=== PATIENT | female | born 1990 | race Hispanic/Latino ===

== ENCOUNTER 2018-04-04 19:03 | Inpatient (IN) ==
[2018-04-04 20:04] LABS: URINE SOURCE VOIDED
[2018-04-04 20:15] LABS: BILIRUBIN URINE NEGATIVE (NEGATIVE); BLOOD URINE TRACE (NEGATIVE); CLARITY CLEAR (CLEAR); COLOR YELLOW; KETONE URINE NEGATIVE (NEGATIVE); LEUKOCYTES URINE NEGATIVE (NEGATIVE); NITRITE URINE NEGATIVE (NEGATIVE); SP GRAVITY URINE 1.015; UROBILINOGEN URINE NORMAL
[2018-04-04] MEDS ORDERED: LR 1,000 ML IV SCH (20:30)
[2018-04-04] MEDS ORDERED: BICITRA PO ONE (20:58)
[2018-04-04] MEDS ORDERED: REGLAN PO ONE (20:58)
[2018-04-04] MEDS ORDERED: SODIUM CHLORIDE 0.9% INJ ONE (20:58)
[2018-04-04] MEDS ORDERED: PEPCID IV ONE (20:58)
--- NOTE | 2018-04-04 21:16 | OB/GYN PROGRESS NOTE ---
Progress Note OB - . OB Progress Note: Laboratory Results - last 24 hr 04/04/18 19:20 Urine Source VOIDED Urine Color YELLOW Urine Clarity CLEAR Urine pH 8.0 Ur Specific [place] 1.015 Urine Protein 3+(500 mg/dL) A Urine Ketones NEGATIVE Urine Blood TRACE Urine Nitrite NEGATIVE Urine Bilirubin NEGATIVE Urine Urobilinogen NORMAL Urine WBC NEGATIVE Urine Glucose TRACE(50 mg/dL) A 27 year old at 38 + 0 weeks with EDC 04/19/17. Hx pre-eclampsia x 2 with delivery at 34-35 weeks by with first and and delivery at 36 weeks by with second. Presented with complaints of contractions. BP elevated 177/108 and 197/112 on arrival with recumbent position has been 185/95, 160/93, 161,97 and 160/87. Epigastric pain present starting today. Swelling LE the past week. NO AVALOS or vision changes, no N/V, no CP or SOB. On exam trace LE edema 2+ reflexes bilaterally. Negative alcantara's sign. FT on cervical exam per nurses. 3+ protein on dip. LABWORK all still pending awaiting labs. C- Section repeat called -- team notified. Will mag post delivery and treat BP based if continued 160's over 90's. Risks and benefits of discussed with patient. H&P dictated #[id number]
[2018-04-04] MEDS ORDERED: SODIUM CHLORIDE 0.9% 10 ML ONE (21:18)
[2018-04-04] MEDS ORDERED: TORADOL ONE (21:18)
[2018-04-04] MEDS ORDERED: NEO-SYNEPHRINE ONE (21:18)
[2018-04-04] MEDS ORDERED: ROBINUL ONE ×2 (21:18→22:59)
[2018-04-04] MEDS ORDERED: DURAMORPH ONE (21:18)
[2018-04-04] MEDS ORDERED: DECADRON ONE (21:18)
[2018-04-04] MEDS ORDERED: PITOCIN ONE (21:18)
[2018-04-04] MEDS ORDERED: ZOFRAN ONE (21:18)
[2018-04-04] MEDS ORDERED: FENTANYL ONE (21:18)
[2018-04-04 21:23] LABS: BASO# 0.01 X1000 (0.0-0.2); BASO% 0.1 % (0.0-0.8); EOS# 0.07 X1000 (0.0-0.7); EOS% 0.9 % (0.0-10.0); HEMATOCRIT 36.9 % (37.0-47.0); HEMOGLOBIN 12.1 g/dL (12.0-16.0); IMM GRAN# 0.03 X1000 (0.0-0.04); IMM GRAN% 0.4 % (0.0-0.5); LYMPH# 2.19 X1000 (1.2-3.4); LYMPH% 28.8 % (20.5-51.1); MCH 27.4 PG (27-31); MCHC 32.8 g/dL (33-37); MCV 83.7 FL (81-99); MONO# 0.42 X1000 (0.11-0.59); MONO% 5.5 % (1.7-9.3); MPV 12.8 FL (7.4-10.4); NEUT# 4.88 X1000 (1.4-6.5); NEUT% 64.3 % (42.2-75.2); PLT 205 X1000 (130-400); RBC 4.41 XMIL (4.2-5.4); RDW 15.2 % (11.5-14.5)
[2018-04-04] MEDS ORDERED: LABETALOL IV ONE (21:29)
[2018-04-04 21:35] LABS: AGAP 13; ALKALINE PHOSPHATASE 270 U/L (32-104); BUN 10 mg/dL (8-22); CALCIUM 8.9 mg/dL (8.8-10.2); CHLORIDE 100 mmol/L (98-107); COSMO 272; CREATININE 0.3 mg/dL (0.5-0.9); ESTIMATED GFR > 60; GLUCOSE 87 mg/dL (70-104); GOT 73 U/L (10-30); GPT 46 U/L (10-36); POTASSIUM 3.8 mmol/L (3.5-5.1); SODIUM 137 mmol/L (136-145); TCO2 24 mmol/L (25-35); TOTAL PROTEIN 7.2 g/dL (6.3-8.3); URIC ACID 3.5 mg/dL (2.4-5.7)
[2018-04-04 21:36] LABS: HEMOGLOBIN A1C 6.8 % (4.8-6.0)
[2018-04-04] MEDS ORDERED: LABETALOL ONE (21:36)
[2018-04-04] MEDS: KEFZOL 1 GM/D5W 1 GM/50 ML IVPB ONE ×2 (21:36→21:37)
[2018-04-04 22:29] LABS: PROTIME 11.2 Seconds (11.0-16.0)
[2018-04-04 22:30] LABS: PTT 26.8 Seconds (22.3-41.8)
[2018-04-04 22:34] LABS: INR 0.77
[2018-04-04] MEDS ORDERED: MAGNESIUM SULFATE 4 GM/S.W.I. 4 GM/100 ML IVPB ONE (22:58)
[2018-04-04] MEDS ORDERED: MAGNESIUM SULFATE 4 GM/S.W.I. 4 GM/100 ML IVPB IV ONE (23:00)
[2018-04-04] MEDS ORDERED: MAGNESIUM SULFATE 2 GM/S.W.I. 2 GM/50 ML IVPB IV ONE (23:00)
--- NOTE | 2018-04-04 23:16 | HISTORY AND PHYSICAL ---
CHIEF COMPLAINT: Contractions that are painful, history of preeclampsia. HISTORY OF PRESENT ILLNESS: The patient is a 27-year-old G4, P2, with EDC of . This places her at 38 weeks and 0 days gestation. She is followed by Dr. Giang of [facility]. She arrived to Labor and Delivery with complaints of contractions that started approximately at 6 p.m. on 04/04/2018. She has a history of x2 that were both due to preeclampsia. On TOCO, she is brendan maybe every 3 to 5. heart tones in the 130s 140s, reactive and reassuring. Accelerations present and a category 1 tracing noted. However, her blood pressures on arrival were 177/108 and 197/112. With recumbent position and left lateral, her blood pressures have maintained in the 160s/87 to approximately 97. The patient states over the past week she has noted some increase in swelling of her lower extremities and today started having some epigastric discomfort and burning. She states it feels "just like both other times." She denies headache or vision problems. She denies nausea or vomiting. She has had good movement. No leakage of fluid. No vaginal bleeding. She denies any chest pain or shortness of breath. Again, history of x2. She has not signed tubal ligation permit papers and was not planning on permanent sterilization. Patient is diabetic and is on Metformin 1000mg po BID and Regular insulin 17 units 9 am and 16 units 9 pm, as well as NPH 26 units at 9am and 24 units at 9pm. States BS in low 100's fasting and 140-170's post prandial. records were reviewed. U/S 03/23/18 placenta posterior and grade 3. 48% for growth. GBS negative. Planning Nexplanon for Post control. PAST MEDICAL HISTORY: 1. Type 2 diabetes since 16 years of age. 2. Pre-eclampsia x 2. She denies any hypertension history other than when . 3. History of Chlamydia in the past. MEDICATIONS: 1. vitamin. 2. The patient is on metformin as well as NPH and regular insulin b.i.d. SURGICAL HISTORY: section x2, cholecystectomy. ALLERGIES: No known drug allergies. FAMILY HISTORY: Diabetes in both her mom and dad. SOCIAL HISTORY: She denies alcohol use, denies illicit drug use, and denies tobacco use. OBSTETRIC HISTORY: Severe preeclampsia with 1st with delivery at 34 weeks per patient and review of prenatals at 35 weeks. It is reported that her 2nd was a repeat in her records. Per patient, she was delivered at 36 weeks with her 2nd child due to preeclampsia symptoms. PHYSICAL EXAMINATION: Blood pressure at present 185/95, pulse of 89, saturation of 99% on room air, temperature 97 degrees. GENERAL: Alert and oriented x3. No acute distress. Having discomfort with contractions. Able to relax somewhat in between. HEENT: Pupils equal, round, reactive to light. There is no thyromegaly present. CARDIOVASCULAR: Regular rate and rhythm. LUNGS: Clear to auscultation bilaterally. ABDOMEN: Bowel sounds present. Soft, nondistended, nontender. No rebound or guarding. Gravid uterus that is nontender. There is no Coleman sign on exam. Points to epigastric area for her discomfort. PELVIC EXAM: Deferred. She was fingertip on arrival per nursing staff. EXTREMITIES: She has trace pitting edema, lower extremities bilaterally. Reflexes are 2+, lower extremities bilaterally. No hyperreflexia noted. No clonus. LABORATORY WORK: At present, all that has returned is UA with 3+ protein on dip and trace urine glucose being present. CMP, CBC, uric acid, and coagulation panel are all ordered and pending at present time. ASSESSMENT: A 27-year-old 4, para 2, at 38 weeks 0 days gestation. History of preeclampsia x2 and currently severe preeclampsia with symptoms, blood pressure and proteinuria. Lab work still pending. PLAN: 1. Team called. Anesthesia called. Nursery made aware. Blood glucose will be on CMP as well prior to delivery. 2. I did discuss with patient regarding section and delivery. She is [place]-speaking. I did discuss it is prior to 39 weeks so a very small risk of lung immaturity does exist. Also with her diabetes, this can have an impact. Risks and benefits of surgery were discussed with the patient at length. Risks of bleeding and infection associated with surgical procedures as well as risk of damage to other vital adjacent organs including bowel, bladder, major blood vessels, and the uterus itself was discussed. I discussed as well that due to her history of previous x2 and previous cholecystectomy, can increase her risk for adhesions which can increase the risk for damage to other vital adjacent organs. She stated understanding for this. I discussed that if bleeding is extensive at the time of surgery that a blood transfusion possibly could be needed. The risk of receiving blood products was discussed including exposure to blood-borne pathogens and severe transfusion reactions. She stated understanding and that she would accept blood products if needed to save her life. Possible postoperative complications including severe wound infection and separation was discussed. Also being obese as well as diabetes can effect wound healing. Good incisional wound care was discussed with the patient. I also discussed the risks of DVT or clot formation and that SCD boots would be used postop, but early ambulation is encouraged. She states understanding. All questions regarding section were discussed. Informed consent was obtained and signed. cc: Phyllis Reno MD MTDD
[2018-04-04] MEDS ORDERED: PITOCIN 10 UNITS/LR 10 UNIT/1,000 ML IV.SOLN IV SCH (23:45)
[2018-04-04] MEDS ORDERED: MAGNESIUM SULFATE 40 GM/S.W.I. 40 GM/1,000 ML IV.SOLN IV SCH (23:45)
[2018-04-04] MEDS ORDERED: MYLICON PO PRN (23:56)
[2018-04-04] MEDS ORDERED: PITOCIN 20 UNITS/NS 20 UNITS/1,000 ML IV.SOLN IV ONE (23:56)
[2018-04-04] MEDS ORDERED: ATARAX PO PRN (23:56)
[2018-04-04] MEDS ORDERED: BOOSTRIX VACCINE IM ONE (23:56)
[2018-04-04] MEDS ORDERED: DULCOLAX PR PRN (23:56)
[2018-04-04] MEDS ORDERED: DEMEROL IM PRN (23:56)
[2018-04-04] MEDS ORDERED: HYDROXYZINE IM PRN (23:56)
[2018-04-04] MEDS ORDERED: NORCO-5 PO PRN (23:56)
[2018-04-04] MEDS ORDERED: M-M-R II VACCINE SUBQ ONE (23:56)
[2018-04-04] MEDS ORDERED: PHENERGAN IM PRN (23:56)
[2018-04-04] MEDS ORDERED: DEMEROL PO PRN ×2 (23:56)
[2018-04-04] MEDS ORDERED: PITOCIN IM PRN (23:56)
[2018-04-05] MEDS ORDERED: PITOCIN 20 UNITS/NS 20 UNITS/1,000 ML IV.SOLN ONE (00:09)
[2018-04-05] MEDS ORDERED: HUMULIN N SUBQ ONE (01:04)
--- NOTE | 2018-04-05 03:11 | OPERATIVE NOTE ---
PROCEDURE DATE: 04/04/2018 PREOPERATIVE DIAGNOSIS: A 38-week, 0 day gestation, severe preeclampsia with HELLP variant, history of x2, history of preeclampsia x2. POSTOPERATIVE DIAGNOSIS: A 38-week, 0 day gestation, severe preeclampsia with HELLP variant, history of x2, history of preeclampsia x2. PROCEDURE: Repeat low transverse section. SURGEON: Dr. Reno. JTAC: None. ANESTHESIA: Spinal, under the direction of Dr. Sotomayor. ESTIMATED BLOOD LOSS: 500 mL. SPECIMENS: Placenta to Pathology for diabetes type 2 and preeclampsia. COMPLICATIONS: None. CONDITION: Stable to PACU. INDICATIONS: The patient is a 27-year-old G4, P2, [place]-speaking female, at 38 weeks and 0 day gestation. She has been receiving her care with [facility]. She presented to Labor and Delivery in the evening of 04/04/2018, stating that she began brendan and having some right-sided pains, approximately 6 p.m. On arrival, she was brendan every 3 to 5 minutes. heart tones were in the 130s to 140s, reactive, reassuring category 1 tracing. However, her blood pressures on arrival were 177/108, and 197/112. With recumbent position, blood pressures remained 185/95, 160/93, 161/97, and 160/87. She did have trace lower extremity edema on exam, and reflexes were 2+ bilaterally. There was no clonus. The patient reports that she has been having swelling for approximately the last week. She also reports that she began having epigastric pain this evening at about the same time her contractions began, and a burning sensation, as well as some right-sided upper abdominal discomfort. Her Coleman' s sign, however, was negative. She had 3+ protein on dip. Lab work that was obtained revealed platelet count of 205,000, hemoglobin of 12.1, hematocrit of 36.9, creatinine 0.3, BUN of 10, glucose of 87, uric acid of 3.5. Her liver functions were slightly elevated, with an AST of 73, and an ALT of 46. She has history of preeclampsia x2 previous pregnancies. At this point patient with severe preeclampsia with severe features, diastolics in the 90s to 110's and systolics anywhere from the 160s to 190s, and proteinuria, discussed with patient proceeding with repeat section due to severe preeclampsia/HELLP variant. Risks and benefits of section were discussed with the patient at length, including risk of anesthesia itself, as well as risks of bleeding, infection associated with surgical procedures. I also discussed the risk of possibly damage to other vital adjacent organs, including bowel, bladder, major blood vessels, and the uterus itself. I discussed with previous surgical procedures there is an increased risk of adhesions being present, and if adhesions are present, she is at an increased risk of damage to adjacent vital organs. I discussed the possibility of need for blood transfusion if bleeding is extensive , and the risks associated with this, including exposure to bloodborne pathogens and severe transfusion reactions. The patient states understanding, and that she would accept a blood transfusion if needed. I discussed possible postoperative complications, including severe wound infection and separation, DVT, or clot formation. I discussed that her history of diabetes type 2, as well as being obese, can have an effect on her wound healing. Good wound care postoperatively was discussed specifically keeping the incision clean and dry, I discussed that SCDs will be placed postoperatively to help prevent risks for clot but encouraged early ambulation. She states understanding for the risks for surgery. She is not desirous of a tubal ligation, and had not signed for tubal permit in her OB's office ahead of time. She is planning on a Nexplanon for control. All questions were answered, and informed consent was obtained and signed. FINDINGS: Female infant, cephalic presentation. Clear fluid on entry to the uterus. 8 pounds 2 ounces, 8, 8 Apgars at 1 and 5 minutes respectively. Her preoperative glucose was 87. Of note, her hemoglobin A1c preoperatively was 6.8. There were some extensive adhesions of the fascial muscular layer that necessitated takedown, as well as some omental adhesions to the uterus and peritoneum as well that were taken down sharply. PROCEDURE: In the operating room a time-out was performed and the patient was identified and the procedure was confirmed. She did receive labetalol 10 mg IV preoperatively. Adequate spinal anesthesia was ascertained. She was prepped and draped in the usual sterile fashion in dorsal supine position, with leftward tilt. Next, a Pfannenstiel skin incision was made over her previous scar with a scalpel. The incision was carried down through the underlying layers of fascia with use of the Bovie. The fascia was incised with a scalpel and extended laterally with Mondragon scissors. There was quite bit of adhesion present of the fascia muscular layer. It was taken down with sharp dissection to delineate layers. Decision was made to place Kochers in the midline and elevate. Scalpel used to cut down sharply for entry into the peritoneal cavity. Finger sweep occurred. I felt no bowel present. There was some mild omental adhesion present. The peritoneal incision was then further expanded with the use of Bovie superiorly. Inferiorly, use of Metzenbaum scissors were used to take down the thickened peritoneal layer in order to gradually ascertain bladder. Once takedown was complete in the inferior aspect, manual traction was used to further expand the incision. Bladder blade was inserted. Peritoneal to uterine adhesions were noted and taken down to help delineate the lower uterine segment more adequately. The vesicouterine peritoneum was then elevated and entered sharply with Metzenbaum scissors, and the bladder flap was taken down. A low transverse incision was made above where the bladder flap takedown occurred. The uterus was thin in nature, but there was no window present. Clear fluid was obtained. The uterine incision was further expanded with digital traction. The infant's head was then delivered atraumatically. The remainder of the infant was delivered without difficulty. The nose and mouth were suctioned with bulb suction. The cord was clamped and cut. The infant was handed off to waiting nurses. The placenta was then spontaneously delivered with massage and traction. Once the placenta was delivered, the uterus was exteriorized and cleared of all clot and debris. The uterine incision was reapproximated with 0 Vicryl in a running locking fashion. Some oozing was noted from the right side of the incision. A [id number] suture with 0 Vicryl was placed for excellent hemostasis. A second layer of 0 Vicryl was used for imbrication. The uterus itself appeared grossly normal. Normal tubes and normal ovaries. The uterus was replaced within the abdominal cavity. Copious amounts of sterile water were used for irrigation. The gutters were cleared of all clot and debris. Uterine incision was again examined and found to be hemostatic. The peritoneum was then reapproximated with 3-0 chromic suture in a running fashion. The subfascial areas were examined and found to be hemostatic. The fascia was reapproximated with 0 Vicryl in a running fashion from each apex to the midline. Subcutaneous tissues were copiously irrigated, found to be hemostatic. 3-0 plain suture was used to close the subcutaneous tissue and space. Interrupted suture low and running suture high. The skin was reapproximated with 4-0 Vicryl in a subcuticular fashion. The patient states that with her first she had stitches and was fine, but the 2nd , they used glue, and her skin had opened up. I reassured the patient that stitches were used to sew her closed, and the patient was grateful. Steri-Strips were applied. Sponge, lap, and needle counts were correct. Pressure dressing was applied. The uterus was firm post delivery and expressed. Both mother and baby were doing well. Blood pressures will be watched post . Blood pressures were relatively good throughout surgery post labetalol IV and with spinal. Magnesium sulfate to be started. Determination for any further blood pressure management based upon readings, once stabilized. cc: Phyllis Reno MD MTDD
[2018-04-05 07:37] LABS: EOS# 0.01 X1000 (0.0-0.7); EOS% 0.1 % (0.0-10.0); HEMATOCRIT 29.8 % (37.0-47.0); HEMOGLOBIN 9.3 g/dL (12.0-16.0); IMM GRAN# 0.05 X1000 (0.0-0.04); IMM GRAN% 0.3 % (0.0-0.5); LYMPH# 1.08 X1000 (1.2-3.4); LYMPH% 7.6 % (20.5-51.1); MCH 26.1 PG (27-31); MCHC 31.2 g/dL (33-37); MCV 83.5 FL (81-99); MONO# 0.48 X1000 (0.11-0.59); MONO% 3.4 % (1.7-9.3); MPV 12.6 FL (7.4-10.4); NEUT# 12.67 X1000 (1.4-6.5); NEUT% 88.6 % (42.2-75.2); PLT 169 X1000 (130-400); RBC 3.57 XMIL (4.2-5.4); RDW 14.9 % (11.5-14.5); WBC 14.29 X1000 (4.8-10.8)
[2018-04-05 07:38] LABS: AGAP 11; ALBUMIN 2.3 g/dL (3.5-5.0); ALKALINE PHOSPHATASE 194 U/L (32-104); BUN 10 mg/dL (8-22); CALCIUM 7.3 mg/dL (8.8-10.2); CHLORIDE 100 mmol/L (98-107); COSMO 271; CREATININE 0.3 mg/dL (0.5-0.9); ESTIMATED GFR > 60; GLUCOSE 159 mg/dL (70-104); GOT 135 U/L (10-30); GPT 78 U/L (10-36); POTASSIUM 3.9 mmol/L (3.5-5.1); SODIUM 134 mmol/L (136-145); TCO2 23 mmol/L (25-35); TOTAL PROTEIN 5.6 g/dL (6.3-8.3)
--- NOTE | 2018-04-05 07:58 | PROGRESS NOTE ---
DATE: 04/05/2018 SUBJECTIVE: Postoperative day #1, no complaints. Patient is feeling well. OBJECTIVE: Vital Signs: The patient has been normotensive since delivery. She has not required any more labetalol IV. She received 1 dose prior to her section. She is currently on magnesium sulfate. General Appearance: Looks well. Abdomen: Fundus nontender. Labs: Hemoglobin 12.1, platelets 205,000. Creatinine 0.3. AST 73 preop. Postop labs are currently pending. ASSESSMENT: 1. Thirty-eight to thirty-nine weeks gestation with prior section. 2. Pre eclampsia with severe features and HELLP syndrome. 3. Insulin-requiring diabetes. PLAN: 1. She will continue magnesium sulfate until this evening for a total of 24 hours postop. 2. Her insulin has been cut in half and hen her metformin has been discontinued. 3. Check postop labs. cc: MD Phyllis Li MD MTDD
[2018-04-05 08:24] LABS: LYMPHS 7 % (21-51); MONO 3 % (1-9); SEGS 90 % (42-75)
[2018-04-05] MEDS: HUMULIN R (PARKWAY) SUBQ SCH ×2 (09:12→21:16)
[2018-04-05] MEDS: HUMULIN N INSULIN (PARKWAY) SUBQ SCH ×2 (09:25→21:15)
[2018-04-05] MEDS: MYLICON PO SCH ×4 (09:26→21:14)
[2018-04-05] MEDS ORDERED: PITOCIN 10 UNITS/NS 1,000 ML IV SCH (10:15)
[2018-04-05] MEDS ORDERED: MAGNESIUM SULFATE 40 GM/S.W.I. 40 GM/1,000 ML IV.SOLN IV ONE (18:19)
[2018-04-05] MEDS: MOTRIN PO PRN (19:12)
[2018-04-05] MEDS: PERICOLACE PO SCH (21:14)
[2018-04-05] MEDS: NORCO-10 PO PRN (21:14)
[2018-04-06] MEDS ORDERED: LR 1,000 ML IV SCH (00:02)
[2018-04-06] MEDS: MOTRIN PO PRN ×2 (05:28→16:16)
[2018-04-06 07:03] LABS: HEMATOCRIT 24.5 % (37.0-47.0); HEMOGLOBIN 7.6 g/dL (12.0-16.0); MCH 26.4 PG (27-31); MCV 85.1 FL (81-99); RBC 2.88 XMIL (4.2-5.4); RDW 15.3 % (11.5-14.5); WBC 7.72 X1000 (4.8-10.8)
[2018-04-06 07:04] LABS: ALBUMIN 2.1 g/dL (3.5-5.0); ALKALINE PHOSPHATASE 162 U/L (32-104); DIRECT BILIRUBIN < 0.20 mg/dL (0.00-0.20); GOT 53 U/L (10-30); GPT 48 U/L (10-36); TOTAL PROTEIN 5.2 g/dL (6.3-8.3)
[2018-04-06] MEDS: FERROUS SULFATE PO SCH (09:06)
[2018-04-06] MEDS: MYLICON PO SCH ×4 (09:06→20:13)
[2018-04-06] MEDS: HUMULIN N INSULIN (PARKWAY) SUBQ SCH ×2 (09:44→20:34)
[2018-04-06] MEDS: HUMULIN R (PARKWAY) SUBQ SCH ×2 (09:44→20:34)
[2018-04-06 12:22] LABS: BASO# 0.01 X1000 (0.0-0.2); BASO% 0.1 % (0.0-0.8); EOS# 0.12 X1000 (0.0-0.7); EOS% 1.4 % (0.0-10.0); HEMATOCRIT 25.8 % (37.0-47.0); HEMOGLOBIN 8.1 g/dL (12.0-16.0); IMM GRAN# 0.05 X1000 (0.0-0.04); IMM GRAN% 0.6 % (0.0-0.5); LYMPH# 2.34 X1000 (1.2-3.4); LYMPH% 27.5 % (20.5-51.1); MCH 26.8 PG (27-31); MCHC 31.4 g/dL (33-37); MCV 85.4 FL (81-99); MONO# 0.45 X1000 (0.11-0.59); MONO% 5.3 % (1.7-9.3); MPV 11.4 FL (7.4-10.4); NEUT# 5.53 X1000 (1.4-6.5); NEUT% 65.1 % (42.2-75.2); PLT 204 X1000 (130-400); RBC 3.02 XMIL (4.2-5.4); RDW 15.5 % (11.5-14.5)
[2018-04-06] MEDS ORDERED: PNEUMOVAX 23 IM ONE (14:15)
[2018-04-06] MEDS: PERICOLACE PO SCH (20:13)
[2018-04-06] MEDS: NORCO-10 PO PRN (20:13)
[2018-04-06] MEDS ORDERED: VALISONE 0.1% CREAM TOP ONE (22:38)
[2018-04-07] MEDS: NORCO-10 PO PRN ×3 (01:45→19:52)
[2018-04-07] MEDS ORDERED: KENALOG 0.1% CREAM TOP ONE (06:00)
[2018-04-07 07:12] LABS: BASO# 0.02 X1000 (0.0-0.2); BASO% 0.2 % (0.0-0.8); EOS% 1.1 % (0.0-10.0); HEMATOCRIT 25.8 % (37.0-47.0); IMM GRAN# 0.05 X1000 (0.0-0.04); IMM GRAN% 0.6 % (0.0-0.5); LYMPH# 2.15 X1000 (1.2-3.4); LYMPH% 24.5 % (20.5-51.1); MCH 26.7 PG (27-31); MONO# 0.53 X1000 (0.11-0.59); MONO% 6.1 % (1.7-9.3); NEUT# 5.91 X1000 (1.4-6.5); NEUT% 67.5 % (42.2-75.2); PLT 231 X1000 (130-400); RDW 15.7 % (11.5-14.5); WBC 8.76 X1000 (4.8-10.8)
[2018-04-07 07:35] LABS: AGAP 10; ALBUMIN 2.3 g/dL (3.5-5.0); ALKALINE PHOSPHATASE 138 U/L (32-104); BUN 7 mg/dL (8-22); CALCIUM 7.5 mg/dL (8.8-10.2); CHLORIDE 103 mmol/L (98-107); COSMO 278; CREATININE 0.3 mg/dL (0.5-0.9); ESTIMATED GFR > 60; GLUCOSE 117 mg/dL (70-104); GOT 60 U/L (10-30); GPT 40 U/L (10-36); POTASSIUM 3.4 mmol/L (3.5-5.1); SODIUM 140 mmol/L (136-145); TCO2 27 mmol/L (25-35); TOTAL PROTEIN 5.4 g/dL (6.3-8.3)
[2018-04-07] MEDS ORDERED: HUMULIN N INSULIN (PARKWAY) SUBQ SCH (09:00)
[2018-04-07] MEDS ORDERED: MILK OF MAGNESIA PO PRN (09:06)
--- NOTE | 2018-04-07 09:14 | PROGRESS NOTE ---
DATE: 04/07/2018 SUBJECTIVE: Postoperative day #3. No complaints. Denies induced orthostatic symptoms. OBJECTIVE: Vital Signs: Temp 97.2 degrees, heart rate 92, respirations 18, blood pressure 143/73. PHYSICAL EXAMINATION: General: Alert and oriented, in no acute distress. Pulmonary: Clear to auscultation bilaterally. CV: Regular rate and rhythm. Abdomen: Soft, nondistended, appropriate postoperative discomfort. Incision clean, dry, intact. Fundus firm. Extremities: No clubbing, cyanosis, or edema. LABORATORY RESULTS: White count 8.76, hemoglobin 8.0, hematocrit 25.8, platelets 231,000, AST 60, ALT 40, fasting blood sugar 59, repeated at 08:30, 99. ASSESSMENT/PLAN: Ms. Gomez is a 27-year-old 4, now para 3, with type 2 diabetes, status post repeat complicated by severe preeclampsia and HELLP syndrome status post 24 hours of magnesium sulfate for seizure prophylaxis. Blood pressure is now nonsevere. Hemoglobin and hematocrit are stable. The patient has had several hypoglycemic episodes since her insulin was cut in half. We will change her insulin dosing to 10 units of regular and 10 units of NPH in the morning, 10 units regular and 10 units of NPH in the p.m. Will monitor for stabilization. AST is stable. We will recheck in the morning to ensure it is trending down. Plan will be to monitor blood sugar throughout the day and blood pressure and possible discharge home tomorrow. cc: MD Phyllis Becerra MD
[2018-04-07] MEDS ORDERED: HUMULIN R (PARKWAY) SUBQ SCH ×2 (09:15→21:00)
[2018-04-07] MEDS: FERROUS SULFATE PO SCH (09:44)
[2018-04-07] MEDS: MYLICON PO SCH ×4 (09:44→21:05)
[2018-04-07] MEDS: HUMULIN N INSULIN (PARKWAY) SUBQ SCH ×2 (10:53→21:06)
[2018-04-07] MEDS: MOTRIN PO PRN ×2 (13:26→21:15)
[2018-04-07] MEDS: PERICOLACE PO SCH (21:05)
[2018-04-08] MEDS ORDERED: TYLENOL PO PRN (00:10)
[2018-04-08] MEDS: TRANDATE PO SCH ×2 (02:02→08:47)
[2018-04-08] MEDS: MOTRIN PO PRN (07:46)
[2018-04-08 08:25] VITALS: BP 144/80
--- NOTE | 2018-04-08 08:30 | DISCHARGE SUMMARY ---
ADMISSION DATE: 04/04/2018 DISCHARGE DATE: 04/08/2018 ADMISSION DIAGNOSES: 1. A 27-year-old, female G 4, P 2, 38 weeks gestation. 2. History of preeclampsia x2. Currently with severe preeclampsia and HELLP syndrome. FINAL DIAGNOSES: 1. A 27-year-old, female G 4, P 2, 38 weeks gestation. 2. History of preeclampsia x2. Currently with severe preeclampsia and HELLP syndrome. 3. Operative delivery of a female, 8 pounds 2 ounces with Apgars of 8 and 8 at 2217 on 04/04/2018. PROCEDURES: 1. Repeat low transverse section. Magnesium sulfate for seizure prophylaxis after delivery. BRIEF HISTORY: The patient is a 27-year-old female, G 4, P 2, A 1 with an EDC of 04/19/2018 placing her at 38 weeks gestation. She presented to Labor and Delivery with contractions. The patient has been seen by Dr. Giang of [facility]. She has a history of section x2. They were both due to preeclampsia. Contractions were noted on monitoring. Blood pressures, however, were noted to be significantly elevated with diastolics in the 100s and 110s. The patient reports good movement. No leakage of fluid. PAST MEDICAL HISTORY: Diabetes mellitus, history of preeclampsia x2, history of Chlamydia in the past. MEDICATIONS: 1. vitamins. 2. Metformin. 3. She had been placed on insulin, regular and NPH during her . PAST SURGICAL HISTORY: Significant for cholecystectomy and section x2. ALLERGIES: No known drug allergies. FAMILY HISTORY: Significant for diabetes. SOCIAL HISTORY: Tobacco use: None. Alcohol use: None. OBSTETRICAL HISTORY: Severe preeclampsia with her first child that necessitated delivery at 34 weeks. Second section also was at 36 weeks. PHYSICAL EXAMINATION: Vital Signs: Blood pressure 185/95, pulse of 89, temperature 97 degrees. General: Alert and oriented x3. No acute distress. HEENT: Pupils equal, round, reactive to light and accommodation. No thyromegaly. Cardiovascular: Regular rate and rhythm. Lungs: Clear to auscultation. Abdomen: Gravid, nontender. Extremities: Trace of pitting edema. Reflexes 2+. The urine showed 3+ proteinuria upon presentation. ASSESSMENT AND PLAN: A 27-year-old female, G 4, P 2, A 1 at 38 weeks gestation with a history of preeclampsia. Plan: Move toward delivery by a repeat section, and I plan on treating with magnesium sulfate post delivery. The patient was placed on Magnesium sulfate at operative delivery. LAB WORK: Her lab work showed that she had an elevated liver function test. POSTOPERATIVE COURSE: She was maintained on magnesium for 24 hours, and her insulin needs required that we discontinue her regular dose and cut it in half for her postop care. Laboratory studies showed that her liver enzymes were continuing to improve over time and the patient became ambulatory. Her blood pressure stabilized. Patient did have labile blood sugars during her postoperative course with some low blood sugars such as 45 and some higher at 230. But, the patient became able to tolerate her food, ambulatory. After working to adjust her insulin, on postop day 4, it was felt that we could discontinue the insulin and restart her home medicines and that would probably remove the possibility of her perfect blood sugar becoming too low at home. She was placed on labetalol for elevated blood pressure after the magnesium and will continue this at home. DISCHARGE PLANS: The patient will be discharged home. Follow up in [address] De La Cruz. Given instructions on pelvic rest and lifting precautions for 6 weeks. As mentioned above, we will discontinue the insulin and will restart her metformin 500 mg 2 pills in the morning and 2 pills in the evening. The patient will be also given prescriptions for 1. [place] 7.5 for pain. 2. Colace. 3. Motrin. 4. Iron sulfate. 5. Labetalol 100 mg b.i.d. for blood pressure. cc: MD Phyllis Salazar III, MD MTDD
[2018-04-08] MEDS: FERROUS SULFATE PO SCH (08:47)
[2018-04-08] MEDS: MYLICON PO SCH (08:47)
== END 2018-04-08 11:35 | disposition home or self-care (01) | DRG 786 ==
LOC: P.OPLD 19:03 → P.LD 19:05
PROVIDERS: ADMIT Obstetrics & Gynecology; ATTEND Obstetrics & Gynecology
CPT/HCPCS: 59025; 80053; 80076; 81003; 82948; 83036; 83735; 84550; 85025; 85027; 85610; 85730; 86592; 86850; 86900; 86901; 90707; 90732; 94760; 94761; 94799; A9270; J0690; J1100; J1815; J1885; J2274; J2275; J2370; J2405; J2590; J3010; J3475; Q9974; S0028; XXXXX